=== PATIENT | female | born 1945 | race Hispanic/Latino ===

== ENCOUNTER → 2017-06-18 | Outpatient (CLI) | payer MEDICARE ==
[~2017-06-18] MED LIST: AMLO2.5T PO; CABE0.5T2 PO; DESMOPRESSIN PO; GABA-531 PO; HYDR-309 PO; INSU100I21 SQ; INSU100I3 SQ; LEVO200T10 PO; LISI10TA7 PO; MAGN400T40 PO; METF10004 PO; METO100T14 PO; MULT-1203 PO; OMEG-125 PO; OMEP20CA10 PO; SUPER B COMPLEX PO
== END ==
LOC: RAH 11:04
PROVIDERS: ATTEND Orthopaedic Surgery
DX: M19.012 Primary osteoarthritis, left shoulder (principal)
CPT/HCPCS: 73221

== ENCOUNTER 2017-07-20 16:00 | Observation (INO) | payer MEDICARE ==
[~2017-07-20] VITALS: Ht 147.3 cm; Wt 75.9 kg
[2017-07-20 12:19] LABS: BASOPHILS % (AUTO) 0.4 % (0.0-5.0); HEMATOCRIT 34.9 % (36-48); LYMPHOCYTES % (AUTO) 39.9 % (21.0-51.0); MEAN CORPUSCULAR HGB CONC 32.7 g/dL (32.0-36.0); MEAN CORPUSCULAR VOLUME 76.6 fL (79-99); MONOCYTES % (AUTO) 8.4 % (3.0-13.0); NEUTROPHILS % (AUTO) 48.3 % (40.0-77.0); NUCLEATED RED BLOOD CELLS 0.1 % (0.0-0.19); PLATELET COUNT (AUTO) 135 K/uL (130-400); RED BLOOD CELL COUNT(AUTO) 4.55 MIL/uL (4.00-5.50); RED CELL DISTRIBUTION WIDTH 16.1 % (11.0-15.5); WHITE BLOOD COUNT (AUTO) 5.2 K/uL (4.8-10.8)
[2017-07-20 12:25] LABS: APPEARANCE,URINE Clear (CLEAR); BILIRUBIN,URINE Negative (NEGATIVE); COLOR,URINE Yellow (YELLOW); GLUCOSE, URINE (UA) Negative (NEGATIVE); KETONES,URINE Negative (NEGATIVE); LEUKOCYTE ESTERASE ,URINE Small (NEGATIVE); NITRATE,URINE Negative (NEGATIVE); OCCULT BLOOD,URINE Negative (NEGATIVE); PH,URINE 5.5 (5.0-8.0); PROTEIN,URINE Trace (NEGATIVE); UROBILINOGEN,URINE 0.2 mg/dL (0.2-1.0)
[2017-07-20 12:30] LABS: CREATININE 0.8 mg/dL (0.5-1.5); INR 1.08 (0.85-1.15); PARTIAL THROMBOPLASTIN TIME 28.2 SEC (26.3-35.5); POTASSIUM 4.4 mmol/L (3.5-5.1); PROTHROMBIN TIME 11.3 SEC (9.6-11.6)
[2017-07-20 12:34] VITALS: BP 137/73
[2017-07-20 12:48] LABS: BACTERIA,URINE Rare /HPF (None Seen); RBC,URINE 0-1 /HPF (0-1); WBC,URINE 0-1 /HPF (0-1)
[~2017-07-20 16:00] MED LIST changes: -HYDR-309 PO
[2017-07-23] VITALS (24 sets, daily range): BP systolic 110–142; BP diastolic 48–81
[2017-07-23] MEDS ORDERED: SODIUM CHLORIDE 0.9% 1000ML 1,000 ML IV ONE (11:52)
[2017-07-23] MEDS: CEFAZOLIN SODIUM 1 GM VIAL IVP SCH ×3 (12:00→23:09)
[2017-07-23] MEDS ORDERED: CEFAZOLIN SODIUM 1 GM VIAL ONE (13:50)
[2017-07-23] MEDS ORDERED: ACETAMINOPHEN EXTRA STRENGTH 500 MG TABLET ONE (13:56)
[2017-07-23] MEDS ORDERED: OXYCODONE HCL 10 MG TAB.SR.12H PO ONE (13:56)
[2017-07-23] MEDS ORDERED: CELECOXIB 200 MG CAP ONE (13:56)
[2017-07-23] MEDS ORDERED: KETOROLAC TROMETHAMINE 15MG/ML ONE (13:57)
[2017-07-23] MEDS ORDERED: TRANEXAMIC ACID 1000MG/10ML IV ONE (14:09)
[2017-07-23] MEDS ORDERED: PROPOFOL 10 MG/ML 20ML VIAL IV ONE (14:32)
[2017-07-23] MEDS ORDERED: ROCURONIUM BROMIDE 10MG/1ML 5ML VL ONE ×3 (14:32→15:30)
[2017-07-23] MEDS ORDERED: MIDAZOLAM HCL 1 MG/ML 2ML VIAL ONE (14:32)
[2017-07-23] MEDS ORDERED: LIDOCAINE PF 2% 5ML ABBOJECT ONE (14:32)
[2017-07-23] MEDS ORDERED: FENTANYL CITRATE PF 50 MCG/1 ML 2ML VIAL ONE (14:33)
[2017-07-23] MEDS ORDERED: ROPIVACAINE 0.5% 5MG/ML 30ML IJ ONE (14:37)
[2017-07-23] MEDS ORDERED: CEFAZOLIN SODIUM 1 GM VIAL IRRIG ONE (15:38)
[2017-07-23] MEDS ORDERED: LIDOCAINE HCL-MPF 1% 2ML VIAL IVP PRN (18:15)
[2017-07-23] MEDS ORDERED: CALCIUM CARBONATE 500 MG TABLET PO PRN (18:15)
[2017-07-23] MEDS ORDERED: ONDANSETRON HCL 4 MG/2 ML VIAL IVP PRN (18:15)
[2017-07-23] MEDS ORDERED: FE FUMARATE/FA/MV, MIN COMB#15 1 TAB PO PRN (18:15)
[2017-07-23] MEDS ORDERED: DiphenhydrAMINE HCL 50 MG/ML VIAL IVP PRN (18:15)
[2017-07-23] MEDS ORDERED: TRAMADOL HCL 50 MG TABLET PO PRN (18:15)
[2017-07-23] MEDS ORDERED: POTASSIUM CHLORIDE 20 MEQ ERTAB PO PRN (18:15)
[2017-07-23] MEDS ORDERED: POTASSIUM CHLORIDE 20MEQ/100ML 100 ML IV PRN (18:15)
[2017-07-23] MEDS ORDERED: OXYCODONE HCL 5 MG TAB PO PRN ×2 (18:15)
[2017-07-23] MEDS ORDERED: POTASSIUM CHLORIDE 10% ELIXIR 20 MEQ/15 ML UDCUP PO PRN (18:15)
[2017-07-23] MEDS ORDERED: KETOROLAC TROMETHAMINE 15MG/ML IV PRN (18:15)
[2017-07-23] MEDS ORDERED: TEMAZEPAM 15 MG CAPSULE PO PRN (18:15)
[2017-07-23] MEDS: DESMOPRESSIN 0.1 MG PO SCH (21:00)
[2017-07-23] MEDS ORDERED: PREGABALIN 25 MG CAP PO SCH (21:00)
[2017-07-23] MEDS: SODIUM CHLORIDE 0.9% 1000ML 1,000 ML IV SCH (21:18)
[2017-07-23] MEDS: METOPROLOL TARTRATE 50 MG TAB PO SCH (21:25)
[2017-07-23] MEDS: GABAPENTIN 300 MG CAPSULE PO SCH (21:25)
[2017-07-23] MEDS: ASPIRIN 325 MG TABLET PO SCH (21:25)
[2017-07-23] MEDS: CELECOXIB 200 MG CAP PO SCH (21:25)
[2017-07-23] MEDS: METFORMIN HCL 500 MG TABLET PO SCH (21:25)
[2017-07-23] MEDS: FAMOTIDINE 20MG TAB 20 MG TAB PO SCH (21:25)
[2017-07-23] MEDS: ACETAMINOPHEN EXTRA STRENGTH 500 MG TABLET PO SCH (21:35)
[2017-07-23] MEDS: INSULIN HUMULIN R 100 UNIT/ML 3ML SQ SCH (21:37)
[2017-07-23] MEDS ORDERED: CEFAZOLIN 2GM / 50 ML 50 ML IV SCH (23:15)
[2017-07-24 00:15] VITALS: BP 119/72
[2017-07-24 01:15] VITALS: BP_SYST 121; BP_SYST 212; BP_DIAS 73
[2017-07-24] MEDS: ACETAMINOPHEN EXTRA STRENGTH 500 MG TABLET PO SCH ×3 (02:00→18:10)
[2017-07-24] MEDS: SODIUM CHLORIDE 0.9% 1000ML 1,000 ML IV SCH (04:05)
[2017-07-24 04:08] VITALS: BP 146/80
[2017-07-24 05:18] LABS: HEMATOCRIT 29.6 % (36-48); MEAN CORPUSCULAR HEMOGLOBIN 25.4 pg (27.0-33.0); MEAN CORPUSCULAR VOLUME 76.8 fL (79-99); PLATELET COUNT (AUTO) 129 K/uL (130-400); RED BLOOD CELL COUNT(AUTO) 3.85 MIL/uL (4.00-5.50); WHITE BLOOD COUNT (AUTO) 7.4 K/uL (4.8-10.8)
[2017-07-24 05:26] LABS: POTASSIUM 4.6 mmol/L (3.5-5.1)
[2017-07-24] MEDS: INSULIN HUMULIN R 100 UNIT/ML 3ML SQ SCH ×3 (06:15→16:15)
[2017-07-24] MEDS: CEFAZOLIN SODIUM 1 GM VIAL IVP SCH (06:20)
[2017-07-24] MEDS: INSULIN GLARGINE 100 UNITS/ML 10 ML VIAL SQ SCH ×2 (06:22→17:56)
[2017-07-24] MEDS: INSULIN LISPRO 100 UNIT/ML 3ML SQ SCH ×3 (06:23→17:57)
[2017-07-24] MEDS ORDERED: LEVOTHYROXINE 100 MCG TABLET PO SCH (06:30)
[2017-07-24 07:00] VITALS: BP 134/69
[2017-07-24] MEDS: CELECOXIB 200 MG CAP PO SCH (08:37)
[2017-07-24] MEDS: METFORMIN HCL 500 MG TABLET PO SCH ×2 (08:38→17:56)
[2017-07-24] MEDS: METOPROLOL TARTRATE 50 MG TAB PO SCH (08:38)
[2017-07-24] MEDS: ASPIRIN 325 MG TABLET PO SCH (08:38)
[2017-07-24] MEDS: GABAPENTIN 300 MG CAPSULE PO SCH (08:38)
[2017-07-24] MEDS: FAMOTIDINE 20MG TAB 20 MG TAB PO SCH (08:38)
[2017-07-24] MEDS: DESMOPRESSIN 0.1 MG PO SCH (08:41)
[2017-07-24] MEDS ORDERED: LISINOPRIL 10 MG TABLET PO SCH (09:00)
[2017-07-24] MEDS ORDERED: AMLODIPINE BESYLATE 2.5 MG TAB PO SCH (09:00)
[2017-07-24] MEDS ORDERED: VITAMIN B COMPLEX 1 CAPSULE PO SCH (09:00)
[2017-07-24] MEDS ORDERED: POLYETHYLENE GLYCOL 3350 17 GM POWD.PACK PO SCH (09:00)
[2017-07-24] MEDS ORDERED: MAGNESIUM OXIDE 400 MG TABLET PO SCH (09:00)
[2017-07-24] MEDS ORDERED: PANTOPRAZOLE SODIUM 40 MG TABLET.DR PO SCH (09:00)
[2017-07-24 11:00] VITALS: BP 138/67
[2017-07-24 15:00] VITALS: BP 139/64
[2017-07-24] MEDS ORDERED: HYDR-309 PO (17:00)
[2017-07-26] MEDS ORDERED: BISACODYL 10 MG SUPP.RECT RC PRN (18:15)
== END 2017-07-24 18:40 | disposition home health service (06) ==
LOC: EDSTATUS 16:00 → DAHIP 07-23 11:28 → INTOOBSV 07-23 11:28 → 4AH 07-23 20:20
PROVIDERS: ADMIT Orthopaedic Surgery; ATTEND Orthopaedic Surgery
DX: M19.012 Primary osteoarthritis, left shoulder (principal); I10 Essential (primary) hypertension; E11.9 Type 2 diabetes mellitus without complications; R05 Cough; E78.5 Hyperlipidemia, unspecified; E03.9 Hypothyroidism, unspecified; E23.0 Hypopituitarism; E27.40 Unspecified adrenocortical insufficiency; Z85.41 Personal history of malignant neoplasm of cervix uteri; Z90.710 Acquired absence of both cervix and uterus; Z82.49 Family history of ischemic heart disease and other diseases of the circulatory system; Z80.0 Family history of malignant neoplasm of digestive organs; Z79.899 Other long term (current) drug therapy
CPT/HCPCS: 23472; 36415 ×2; 76000; 80048 ×2; 81001; 82948 ×7; 85025; 85027; 85610; 85730; 88304; 88311; 96372 ×2; 96374; 96376; 97116; 97161; 97530 ×2; A4218 ×3; A4565; A4600; A4649 ×2; A4930; A6206; C1763; C1776; G0168; G0378 ×32; G8978; G8979; G8980; G8981; G8982; G8983; J0690 ×5; J1815; J1885; J2001; J2250; J2704; J2795; J3010; J3490 ×4; J7030 ×2

== ENCOUNTER → 2018-04-08 | Outpatient (CLI) | payer MEDICARE ==
[~2018-04-08] MED LIST changes: -AMLO2.5T PO; +AMLO2.5T4 PO; -CABE0.5T2 PO; +HYDR-4457 PO; +METF-446 PO; -METF10004 PO
== END | disposition home or self-care (01) ==
LOC: RAH 14:25
PROVIDERS: ATTEND Nurse Practitioner Family
DX: J20.9 Acute bronchitis, unspecified (principal); M47.815 Spondylosis without myelopathy or radiculopathy, thoracolumbar region
CPT/HCPCS: 71046

== ENCOUNTER → 2018-12-12 | Outpatient (CLI) | payer MEDICARE ==
[~2018-12-12] MED LIST changes: +OMEP-50 PO; -OMEP20CA10 PO
== END | disposition home or self-care (01) ==
LOC: OIH 10:07
PROVIDERS: ATTEND Family Medicine
DX: M43.16 Spondylolisthesis, lumbar region (principal); M43.17 Spondylolisthesis, lumbosacral region; M25.712 Osteophyte, left shoulder
CPT/HCPCS: 72100; 73030; 73650

== ENCOUNTER → 2019-01-09 | Outpatient (CLI) | payer MEDICARE ==
[~2019-01-09] MED LIST changes: +GADODIAMIDE 10 MMOL/20 ML VIAL IV ONE
== END | disposition home or self-care (01) ==
LOC: RAH 10:13
PROVIDERS: ATTEND Family Medicine
DX: E23.6 Other disorders of pituitary gland (principal)
CPT/HCPCS: 70553; A9579

== ENCOUNTER → 2019-04-08 | Outpatient (CLI) | payer MEDICARE ==
[~2019-04-08] MED LIST changes: -GADODIAMIDE 10 MMOL/20 ML VIAL IV ONE; -OMEP-50 PO; +OMEP20CA12 PO
== END | disposition home or self-care (01) ==
LOC: RAH 08:55
PROVIDERS: ATTEND Orthopaedic Surgery
DX: S43.491A Other sprain of right shoulder joint, initial encounter (principal); M19.011 Primary osteoarthritis, right shoulder; M62.511 Muscle wasting and atrophy, not elsewhere classified, right shoulder; X58.XXXA Exposure to other specified factors, initial encounter; Y93.89 Activity, other specified; Y92.89 Other specified places as the place of occurrence of the external cause; Y99.8 Other external cause status
CPT/HCPCS: 73221

== ENCOUNTER → 2019-11-20 | Outpatient (CLI) | payer MEDICARE ==
[~2019-11-20] MED LIST changes: +GADODIAMIDE 10 MMOL/20 ML VIAL IV ONE
== END | disposition home or self-care (01) ==
LOC: RAH 13:39
PROVIDERS: ATTEND Internal Medicine
DX: D35.2 Benign neoplasm of pituitary gland (principal)
CPT/HCPCS: 70553; A9579

== ENCOUNTER 2020-02-09 11:00 | Inpatient (IN) | payer MEDICARE ==
[~2020-02-09] VITALS: Ht 154.9 cm; Wt 74.2 kg
[2020-02-09 10:13] LABS: BASOPHILS % (AUTO) 0.7 % (0.0-5.0); EOSINOPHILS % (AUTO) 2.3 % (0.0-8.0); HEMATOCRIT 40.3 % (36-48); MEAN CORPUSCULAR HEMOGLOBIN 25.8 pg (27.0-33.0); MEAN CORPUSCULAR VOLUME 83.1 fL (79-99); MONOCYTES % (AUTO) 8.6 % (3.0-13.0); NEUTROPHILS % (AUTO) 43.2 % (40.0-77.0); PLATELET COUNT (AUTO) 124 K/uL (130-400); RED BLOOD CELL COUNT(AUTO) 4.85 MIL/uL (4.00-5.50); WHITE BLOOD COUNT (AUTO) 4.4 K/uL (4.8-10.8)
[2020-02-09 10:18] LABS: APPEARANCE,URINE Clear (CLEAR); BILIRUBIN,URINE Negative (NEGATIVE); COLOR,URINE Yellow (YELLOW); GLUCOSE, URINE (UA) Negative (NEGATIVE); KETONES,URINE Negative (NEGATIVE); LEUKOCYTE ESTERASE ,URINE Negative (NEGATIVE); NITRATE,URINE Negative (NEGATIVE); OCCULT BLOOD,URINE Negative (NEGATIVE); PROTEIN,URINE Negative (NEGATIVE); UROBILINOGEN,URINE 0.2 mg/dL (0.2-1.0)
[2020-02-09 10:20] LABS: CREATININE 0.9 mg/dL (0.5-1.5); POTASSIUM 4.5 mmol/L (3.5-5.1)
[2020-02-09 10:30] LABS: INR 1.09 (0.85-1.15); PROTHROMBIN TIME 11.7 SEC (9.6-11.6)
[~2020-02-09 11:00] MED LIST changes: -GADODIAMIDE 10 MMOL/20 ML VIAL IV ONE
--- NOTE | 2020-02-10 14:27 | NUR ---
LABS ABNORMAL LABS INCLUDING WBC AND PLATELETS REPORTED TO DR. VÁSQUEZ. NO NEW TELEPHONE ORDERS RECEIVED.
--- NOTE | 2020-02-10 14:56 | NUR ---
EKG DR. QUINTANILLA NOTIFIED OF ABNORMAL EKG. NO NEW TELEPHONE ORDERS RECEIVED.
[2020-02-10 15:14] VITALS: BP 175/90
[2020-02-16] VITALS (23 sets, daily range): BP systolic 108–167; BP diastolic 57–90
[2020-02-16] MEDS: CEFAZOLIN SODIUM 1 GM VIAL IVP ONE ×2 (08:00→13:25)
[2020-02-16] MEDS ORDERED: CEFAZOLIN SODIUM 1 GM VIAL ONE ×2 (09:14→12:35)
[2020-02-16] MEDS ORDERED: SODIUM CHLORIDE 0.9% 1000ML 1,000 ML IV ONE (09:14)
[2020-02-16] MEDS ORDERED: LEVO175T9 PO (09:40)
[2020-02-16] MEDS ORDERED: MYBETRIQ PO (09:41)
[2020-02-16] MEDS ORDERED: PRAV40TA3 PO (09:42)
[2020-02-16] MEDS ORDERED: LIDOCAINE PF 2% 5ML ABBOJECT ONE (12:01)
[2020-02-16] MEDS ORDERED: SUCCINYLCHOLINE CHLORIDE 20 MG/ML 10 ML VIAL ONE (12:01)
[2020-02-16] MEDS ORDERED: CELECOXIB 200 MG CAP ONE (12:02)
[2020-02-16] MEDS ORDERED: KETOROLAC TROMETHAMINE 30MG/ML ONE ×2 (12:02→16:23)
[2020-02-16] MEDS ORDERED: ACETAMINOPHEN EXTRA STRENGTH 500 MG TABLET ONE (12:02)
[2020-02-16] MEDS ORDERED: PROPOFOL 10 MG/ML 20ML VIAL IV ONE (12:03)
[2020-02-16] MEDS ORDERED: ROCURONIUM 10MG/1ML SYR 10 MG/ML ML ONE (12:03)
[2020-02-16] MEDS ORDERED: FENTANYL CITRATE PF 50 MCG/1 ML 2ML VIAL ONE (12:03)
[2020-02-16] MEDS ORDERED: ROPIVACAINE 0.5% 5MG/ML 30ML IJ ONE (12:06)
[2020-02-16] MEDS ORDERED: ACETAMINOPHEN EXTRA STRENGTH 500 MG TABLET PO SCH (12:15)
[2020-02-16] MEDS ORDERED: CELECOXIB 200 MG CAP PO SCH (12:15)
[2020-02-16] MEDS ORDERED: KETOROLAC TROMETHAMINE 15MG/ML IV SCH (12:15)
[2020-02-16] MEDS ORDERED: TRANEXAMIC ACID 1000MG/10ML IV SCH (12:30)
[2020-02-16] MEDS ORDERED: TRANEXAMIC ACID 1000MG/10ML IV ONE (12:30)
[2020-02-16] MEDS ORDERED: TRANEXAMIC ACID 1000MG/10ML ONE (12:35)
[2020-02-16] MEDS ORDERED: EPHEDRINE SULFATE 50 MG/ML AMPULE ONE (14:54)
[2020-02-16] MEDS ORDERED: ONDANSETRON HCL 4 MG/2 ML VIAL ONE (16:24)
[2020-02-16] MEDS ORDERED: GLYCOPYRROLATE 1 MG/5 ML SYRINGE ONE (16:25)
[2020-02-16] MEDS ORDERED: NEOSTIGMINE 5MG/5ML SYR IV ONE (16:25)
[2020-02-16] MEDS: ACETAMINOPHEN EXTRA STRENGTH 500 MG TABLET PO SCH (17:00)
[2020-02-16] MEDS ORDERED: ONDANSETRON HCL 4 MG/2 ML VIAL IVP PRN (17:00)
[2020-02-16] MEDS ORDERED: OXYCODONE HCL 5 MG TAB PO PRN (17:00)
[2020-02-16] MEDS ORDERED: KETOROLAC TROMETHAMINE 15MG/ML IV PRN (17:00)
[2020-02-16] MEDS ORDERED: DiphenhydrAMINE HCL 50 MG/ML VIAL IVP PRN (17:00)
[2020-02-16] MEDS ORDERED: CALCIUM CARBONATE 500 MG TABLET PO PRN (17:00)
[2020-02-16] MEDS ORDERED: POTASSIUM CHLORIDE 20MEQ/100ML 100 ML IV PRN (17:00)
[2020-02-16] MEDS ORDERED: POTASSIUM CHLORIDE 20 MEQ ERTAB PO PRN (17:00)
[2020-02-16] MEDS ORDERED: POTASSIUM CHLORIDE 10% ELIXIR 20 MEQ/15 ML UDCUP PO PRN (17:00)
[2020-02-16] MEDS ORDERED: LIDOCAINE HCL-MPF 1% 2ML VIAL IV PRN (17:00)
[2020-02-16] MEDS ORDERED: TEMAZEPAM 15 MG CAPSULE PO PRN (17:00)
[2020-02-16] MEDS ORDERED: FE FUMARATE/FA/MV, MIN COMB#15 1 TAB PO PRN (17:00)
[2020-02-16] MEDS: SODIUM CHLORIDE 0.9% 1000ML 1,000 ML IV SCH ×2 (17:05→19:41)
[2020-02-16] MEDS ORDERED: CEFTRIAXONE SODIUM 1 GM ONE (17:47)
[2020-02-16] MEDS: OXYCODONE HCL 5 MG TAB PO PRN (19:41)
[2020-02-16] MEDS: PREGABALIN 25 MG CAP PO SCH (19:41)
[2020-02-16] MEDS: CELECOXIB 200 MG CAP PO SCH (19:41)
[2020-02-16] MEDS ORDERED: HYDROMORPHONE HCL 2 MG/ML VIAL ONE (20:17)
[2020-02-16] MEDS: INSULIN HUMULIN R 100 UNIT/ML 3ML SQ SCH (20:39)
[2020-02-16] MEDS: HYDROMORPHONE 1 MG/1 ML AMP IVP PRN ×3 (20:57→23:29)
[2020-02-16] MEDS: METFORMIN HCL 500 MG TABLET PO SCH (20:59)
[2020-02-16] MEDS: ATORVASTATIN CALCIUM 10 MG TABLET PO SCH (20:59)
[2020-02-16] MEDS: METOPROLOL TARTRATE 50 MG TAB PO SCH (20:59)
[2020-02-16] MEDS: CEFAZOLIN SODIUM 1 GM VIAL IVP SCH (22:13)
[2020-02-17] VITALS: BP 114/62
[2020-02-17] MEDS: ACETAMINOPHEN EXTRA STRENGTH 500 MG TABLET PO SCH ×3 (00:40→17:21)
[2020-02-17] MEDS: OXYCODONE HCL 5 MG TAB PO PRN ×3 (00:40→14:22)
[2020-02-17] MEDS: HYDROMORPHONE 1 MG/1 ML AMP IVP PRN ×3 (01:31→04:30)
[2020-02-17] MEDS: SODIUM CHLORIDE 0.9% 1000ML 1,000 ML IV SCH ×2 (02:13→13:00)
[2020-02-17 04:00] VITALS: BP 99/61
[2020-02-17 05:02] LABS: HEMATOCRIT 31.7 % (36-48); MEAN CORPUSCULAR HEMOGLOBIN 25.8 pg (27.0-33.0); MEAN CORPUSCULAR HGB CONC 31.2 g/dL (32.0-36.0); MEAN CORPUSCULAR VOLUME 82.8 fL (79-99); RED BLOOD CELL COUNT(AUTO) 3.83 MIL/uL (4.00-5.50)
[2020-02-17] MEDS: INSULIN HUMULIN R 100 UNIT/ML 3ML SQ SCH ×4 (05:12→20:39)
[2020-02-17 05:17] LABS: CREATININE 0.9 mg/dL (0.5-1.5); POTASSIUM 4.1 mmol/L (3.5-5.1)
[2020-02-17] MEDS: CEFAZOLIN SODIUM 1 GM VIAL IVP SCH (05:48)
[2020-02-17] MEDS: LEVOTHYROXINE 100 MCG TABLET PO SCH (05:48)
[2020-02-17] MEDS: LEVOTHYROXINE 75 MCG TABLET PO SCH (05:48)
[2020-02-17] MEDS: INSULIN LISPRO 100 UNIT/ML 3ML SQ SCH ×4 (06:45→17:35)
[2020-02-17 08:00] VITALS: BP 125/65
[2020-02-17] MEDS: INSULIN GLARGINE 100 UNITS/ML 10 ML VIAL SQ SCH ×2 (08:27→17:19)
[2020-02-17] MEDS: CELECOXIB 200 MG CAP PO SCH ×2 (08:32→20:43)
[2020-02-17] MEDS: AMLODIPINE BESYLATE 2.5 MG TAB PO SCH (08:32)
[2020-02-17] MEDS: PREGABALIN 25 MG CAP PO SCH ×2 (08:32→20:43)
[2020-02-17] MEDS: PANTOPRAZOLE SODIUM 40 MG TABLET.DR PO SCH (08:32)
[2020-02-17] MEDS: POLYETHYLENE GLYCOL 3350 17 GM POWD.PACK PO SCH (08:33)
[2020-02-17] MEDS: METFORMIN HCL 500 MG TABLET PO SCH ×2 (08:33→17:20)
[2020-02-17] MEDS: LISINOPRIL 10 MG TABLET PO SCH (08:34)
[2020-02-17] MEDS: METOPROLOL TARTRATE 50 MG TAB PO SCH ×2 (08:39→20:43)
[2020-02-17] MEDS: MYBETRIQ 50 MG PO SCH (08:40)
[2020-02-17] MEDS: TRAMADOL HCL 50 MG TABLET PO PRN ×2 (10:54→17:21)
[2020-02-17 12:00] VITALS: BP 109/66
[2020-02-17 16:00] VITALS: BP 131/63
[2020-02-17 20:04] VITALS: BP 117/59
[2020-02-17] MEDS: ATORVASTATIN CALCIUM 10 MG TABLET PO SCH (20:43)
[2020-02-18 00:04] VITALS: BP 93/49
[2020-02-18] MEDS: ACETAMINOPHEN EXTRA STRENGTH 500 MG TABLET PO SCH ×3 (01:02→16:58)
[2020-02-18 04:04] VITALS: BP 118/58
[2020-02-18] MEDS: LEVOTHYROXINE 75 MCG TABLET PO SCH (05:44)
[2020-02-18] MEDS: LEVOTHYROXINE 100 MCG TABLET PO SCH (05:44)
[2020-02-18] MEDS: INSULIN HUMULIN R 100 UNIT/ML 3ML SQ SCH ×3 (05:45→16:30)
[2020-02-18] MEDS: OXYCODONE HCL 5 MG TAB PO PRN (07:34)
[2020-02-18 08:18] VITALS: BP 130/76
[2020-02-18] MEDS: METFORMIN HCL 500 MG TABLET PO SCH ×2 (08:41→16:58)
[2020-02-18] MEDS: PREGABALIN 25 MG CAP PO SCH (08:41)
[2020-02-18] MEDS: PANTOPRAZOLE SODIUM 40 MG TABLET.DR PO SCH (08:41)
[2020-02-18] MEDS: AMLODIPINE BESYLATE 2.5 MG TAB PO SCH (08:42)
[2020-02-18] MEDS: LISINOPRIL 10 MG TABLET PO SCH (08:42)
[2020-02-18] MEDS: METOPROLOL TARTRATE 50 MG TAB PO SCH (08:42)
[2020-02-18] MEDS: CELECOXIB 200 MG CAP PO SCH (08:42)
[2020-02-18] MEDS: POLYETHYLENE GLYCOL 3350 17 GM POWD.PACK PO SCH (08:42)
[2020-02-18] MEDS: MYBETRIQ 50 MG PO SCH (08:48)
[2020-02-18 11:20] VITALS: BP 109/55
[2020-02-18] MEDS: INSULIN LISPRO 100 UNIT/ML 3ML SQ SCH ×2 (12:25→16:39)
[2020-02-18] MEDS: TRAMADOL HCL 50 MG TABLET PO PRN (13:13)
[2020-02-18] MEDS ORDERED: INSULIN GLARGINE 100 UNITS/ML 10 ML VIAL SQ SCH (16:30)
[2020-02-18 17:05] VITALS: BP 126/57
[2020-02-18] MEDS ORDERED: HYDR-4457 PO (17:31)
--- NOTE | 2020-02-18 18:35 | NUR ---
[facility] CALLED. WAITING ACOUSTIC INTELLIGENCE SPECIALIST BACK.
--- NOTE | 2020-02-18 19:48 | NUR ---
DISCHARGE PATIENT GIVEN DISCHARGE INSTRUCTIONS AND EDUCATION ON FOLLOW UP APPOINTMENTS AND NEW PRESCRIBED MEDICATIONS ([facility]), [facility], REPORT GIVEN TO GABRIELA STEPHEN RN REGARDING DRESSING TO BE REMOVED ON 02/20/20, AND FOLLOW UP APPOINTMENTS, AND NEW RX. IV DISCONTINUED, HEMOVAC REMOVED. STERILE DRESSING APPLIED TO SITE.
[2020-02-19] MEDS ORDERED: BISACODYL 10 MG SUPP.RECT RC PRN (17:00)
== END 2020-02-18 19:50 | disposition home health service (06) | DRG 483 ==
LOC: EDSTATUS 11:00 → DAHIP 02-16 07:38 → 3AH 02-16 18:17
PROVIDERS: ADMIT Orthopaedic Surgery; ATTEND Orthopaedic Surgery
PROC: 0RRJ0JZ Replacement of Right Shoulder Joint with Synthetic Substitute, Open Approach (ICD-10-PCS; principal; 2020-02-16 12:55)
DX: M19.011 Primary osteoarthritis, right shoulder (principal); E03.9 Hypothyroidism, unspecified; E11.9 Type 2 diabetes mellitus without complications; I10 Essential (primary) hypertension; I25.10 Atherosclerotic heart disease of native coronary artery without angina pectoris; D64.9 Anemia, unspecified; Z96.612 Presence of left artificial shoulder joint; K21.9 Gastro-esophageal reflux disease without esophagitis; G89.29 Other chronic pain; Z20.828 Contact with and (suspected) exposure to other viral communicable diseases; Z85.41 Personal history of malignant neoplasm of cervix uteri; Z90.710 Acquired absence of both cervix and uterus; Z90.49 Acquired absence of other specified parts of digestive tract; Z79.899 Other long term (current) drug therapy
CPT/HCPCS: 36415; 73030; 80048; 81003; 82948; 85025; 85027; 85610; 87641; 88304; 88311; 97039; A4565; C1776; G0378; J0330; J0690; J0696; J1170; J1815; J1885; J2001; J2405; J2704; J2710; J2795; J3010; J3490; J7030; U0003

== ENCOUNTER → 2020-11-11 | Outpatient (CLI) | payer MEDICARE ==
[~2020-11-11] MED LIST changes: -DESMOPRESSIN PO; -GABA-531 PO; +GADOTERATE MEGLUMINE 10 MMOL/20 ML VIAL IV ONE; +LEVO175T9 PO; -LEVO200T10 PO; +LISI10TA24 PO; -LISI10TA7 PO; -MAGN400T40 PO; -MULT-1203 PO; +MYBETRIQ PO; -OMEG-125 PO; +PRAV40TA3 PO; -SUPER B COMPLEX PO
== END | disposition home or self-care (01) ==
LOC: RAH 09:07
PROVIDERS: ATTEND Neurological Surgery
DX: D35.2 Benign neoplasm of pituitary gland (principal); R22.0 Localized swelling, mass and lump, head; I73.89 Other specified peripheral vascular diseases
CPT/HCPCS: 70553; A9575

== ENCOUNTER 2021-01-03 00:31 | Emergency (ER) | payer MEDICARE ==
[~2021-01-03] VITALS: Ht 154.9 cm; Wt 86.2 kg
[~2021-01-03 00:31] MED LIST changes: -GADOTERATE MEGLUMINE 10 MMOL/20 ML VIAL IV ONE
[2021-01-03] MEDS ORDERED: ONDANSETRON 4MG INJ IVP ONE (01:00)
[2021-01-03] MEDS ORDERED: KETOROLAC 15MG/ML VIAL (15MG/ML) IV ONE (01:00)
[2021-01-03] MEDS ORDERED: MORPHINE 2 MG SYG IVP ONE (01:00)
[2021-01-03] MEDS ORDERED: 0.9%NACL 1000ML 1,000 ML IV ONE (01:00)
[2021-01-03 01:12] LABS: BASOPHILS % (AUTO) 0.6 % (0.0-5.0); EOSINOPHILS % (AUTO) 1.4 % (0.0-8.0); HEMATOCRIT 41.3 % (36-48); LYMPHOCYTES % (AUTO) 38.1 % (21.0-51.0); MEAN CORPUSCULAR HEMOGLOBIN 27.4 pg (27.0-33.0); MEAN CORPUSCULAR HGB CONC 31.7 g/dL (32.0-36.0); MEAN CORPUSCULAR VOLUME 86.4 fL (79-99); MONOCYTES % (AUTO) 9.5 % (3.0-13.0); NEUTROPHILS % (AUTO) 50.1 % (40.0-77.0); PLATELET COUNT (AUTO) 120 K/uL (130-400); RED BLOOD CELL COUNT(AUTO) 4.78 MIL/uL (4.00-5.50); RED CELL DISTRIBUTION WIDTH 15.6 % (11.0-15.5); WHITE BLOOD COUNT (AUTO) 7.9 K/uL (4.8-10.8)
[2021-01-03 01:17] LABS: APPEARANCE,URINE Clear (CLEAR); BILIRUBIN,URINE Negative (NEGATIVE); COLOR,URINE Yellow (YELLOW); GLUCOSE, URINE (UA) Negative (NEGATIVE); KETONES,URINE Negative (NEGATIVE); LEUKOCYTE ESTERASE ,URINE Small (NEGATIVE); NITRATE,URINE Negative (NEGATIVE); OCCULT BLOOD,URINE Negative (NEGATIVE); PH,URINE 7.5 (5.0-8.0); PROTEIN,URINE Trace mg/dL (NEGATIVE)
[2021-01-03 01:18] LABS: CREATININE 0.9 mg/dL (0.5-1.5); POTASSIUM 4.2 mmol/L (3.5-5.1)
[2021-01-03 01:22] LABS: ALBUMIN 3.7 g/dL (3.5-5.0); BILIRUBIN,TOTAL 0.3 mg/dL (0.2-1.0); TOTAL PROTEIN, SERUM 7.6 g/dL (6.0-8.3)
[2021-01-03 01:40] LABS: BACTERIA,URINE Few /HPF (None Seen); RBC,URINE 0-1 /HPF (0-1); SQUAMOUS EPITHELIAL CELL,UR Rare /HPF (0-2)
[2021-01-03] MEDS ORDERED: LIDOCAINE HCL 2% VISCOUS 15 ML UDCUP PO ONE (02:00)
[2021-01-03] MEDS ORDERED: FAMOTIDINE 20MG VIAL IV ONE (02:00)
[2021-01-03] MEDS ORDERED: MAG/ALUM/SIMETH 30 ML UDCUP PO ONE (02:00)
[2021-01-03] MEDS ORDERED: DICYCLOMINE HCL 10 MG/5 ML ML PO ONE (02:00)
[2021-01-03 02:13] VITALS: BP 172/82
[2021-01-03] MEDS ORDERED: FAMO-136 PO (02:13)
[2021-01-03] MEDS ORDERED: DICY20TA2 PO (02:13)
== END 2021-01-03 02:23 | disposition home or self-care (01) ==
LOC: EDH 00:31
DX: R10.11 Right upper quadrant pain (principal); E11.9 Type 2 diabetes mellitus without complications; E05.90 Thyrotoxicosis, unspecified without thyrotoxic crisis or storm; Z79.1 Long term (current) use of non-steroidal anti-inflammatories (NSAID); Z79.4 Long term (current) use of insulin; Z79.899 Other long term (current) drug therapy
CPT/HCPCS: 36415; 74176; 80053; 81001; 83690; 84484; 85025; 93005; 96374; 96375; 99285; J1885; J2405; J3490

== ENCOUNTER → 2021-09-12 | Outpatient (CLI) | payer MEDICARE ==
[~2021-09-12] MED LIST changes: +DICY20TA2 PO; +FAMO-136 PO
== END | disposition home or self-care (01) ==
LOC: RAH 07:22
PROVIDERS: ATTEND Internal Medicine Gastroenterology
DX: R14.0 Abdominal distension (gaseous) (principal); R10.12 Left upper quadrant pain
CPT/HCPCS: 78264; A9541

== ENCOUNTER → 2023-04-06 | Outpatient (CLI) | payer MEDICARE ==
[~2023-04-06] MED LIST changes: +GADOTERATE MEGLUMINE 10 MMOL/20 ML VIAL IV ONE; -INSU100I21 SQ; +INSU100I22 SQ
== END | disposition home or self-care (01) ==
LOC: RAH 10:56
PROVIDERS: ATTEND Family Medicine
DX: G31.9 Degenerative disease of nervous system, unspecified (principal); E23.7 Disorder of pituitary gland, unspecified; R90.82 White matter disease, unspecified; J32.9 Chronic sinusitis, unspecified; R47.02 Dysphasia
CPT/HCPCS: 70553; 92611; 74230; A9575